=== PATIENT | female | born 1965 | race Caucasian/White ===

== ENCOUNTER 2017-11-17 09:34 | Inpatient (IN) | payer MEDICARE, MEDICAID, SELFPAY ==
[2017-11-17] VITALS (10 sets, daily range): BP systolic 129–146; BP diastolic 00–86; PULSE 87–124; RESP 16–26; TEMP 36.8–38.3; O2SAT 94–98; BMI 23.1; BMI 18.1
--- NOTE | 2017-11-17 09:44 | HMH.EDGENADL ---
ED Disposition Clinical Impression: Seizure disorder Fever Qualifiers: Fever type: unspecified Qualified Code(s): R50.9 - Fever, unspecified Disposition: Still a Patient Condition on Discharge: Good - Critical Care Critical Care Time: No Attestation: On , the high probability of a clinically significant, sudden or life threatening deterioration of the following system(s) required my full and direct attention, intervention and personal management. The time I documented below is in addition to time spent performing reported procedures but includes the following listed in this critical care notation. Medical Decision Making - Gerardo Inquiry Pt receiving controlled substance: No Vital Signs: 11/17/17 09:35 11/17/17 09:54 11/17/17 10:26 Temperature 98.7 F 101.0 F H Temperature Source Axillary Rectal Pulse Rate [Right Radial] 124 H Respiratory Rate 26 H Blood Pressure [Right Arm] 146/00 130/83 Blood Pressure Mean [Right Arm] 48 98 Blood Pressure Source [Right Arm] Manual Cuff/ Palpation Automatic Cuff Blood Pressure Position [Right Arm] Supine Supine 02 Sat by Pulse Oximetry 94 L Oxygen Delivery Method Room Air 11/17/17 10:30 11/17/17 12:35 Temperature Temperature Source Pulse Rate [Right Radial] 89 108 H Respiratory Rate 18 16 Blood Pressure [Right Arm] 138/85 134/71 Blood Pressure Mean [Right Arm] 102 92 Blood Pressure Source [Right Arm] Automatic Cuff Blood Pressure Position [Right Arm] Supine 02 Sat by Pulse Oximetry 97 96 Oxygen Delivery Method - Lab Data Lab Results 11/17/17 09:25: Urine Color Yellow, Urine Appearance Clear, Urine pH 6.0, Ur Specific [place] 1.025, Urine Protein 2+, Urine Glucose (UA) Negative, Urine Ketones Negative, Urine Blood 2+, Urine Nitrate Negative, Urine Bilirubin Negative, Urine Urobilinogen 0.2, Ur Leukocyte Esterase Negative, Urine RBC 5-10, Urine WBC None, Ur Squamous Epith Cells Occasional, Urine Bacteria 1+, Urine Mucus 2+ 11/17/17 10:54: Chlamy pneumoniae PCR Not detected, Adenovirus (PCR) Not detected, B.parapertussis DNA PCR Not detected, Coronavirus OC43 (PCR) Not detected, Coronavirus HKU1 (PCR) Not detected, Coronavirus 229E (PCR) Not detected, Coronavirus NL63 (PCR) Not detected, Human Metapneumovir PCR Not detected, Influenza A (H1) PCR Not detected, Influ A (H1N1/09) PCR Not detected, Influenza A (H3) PCR Not detected, Influenza Type A (PCR) Not detected, Influenza Type B (PCR) Not detected, M. pneumoniae (PCR) Not detected, Parainfluenza 1 (PCR) Not detected, Parainfluenza 2 (PCR) Not detected, Parainfluenza 3 (PCR) Not detected, Parainfluenza 4 (PCR) Not detected, RSV (PCR) Not detected, Entero/Rhino (PCR) Not detected 11/17/17 11:18: WBC 9.3, RBC 5.11, Hgb 15.8, Hct 48.6 H, MCV 95.1, MCH 30.8, MCHC 32.4, RDW 12.0, Plt Count 160, MPV 9.1, Neut % (Auto) 85.6 H, Lymph % (Auto) 9.9 L, [place] % (Auto) 3.6, Eos % (Auto) 0.6, Baso % (Auto) 0.3, Neut # (Auto) 8.0 H, Lymph # (Auto) 0.9, [place] # (Auto) 0.3, Eos # (Auto) 0.1, Baso # (Auto) 0.0, Total Counted 100, Neutrophils % (Manual) 87 H, Lymphocytes % (Manual) 10, Monocytes % (Manual) 3, Platelet Estimate Normal, RBC Morphology Normal 11/17/17 11:18: Sodium 143, Potassium 3.9, Chloride 108 H, Carbon Dioxide 26, Anion Gap 12.9, BUN 17, Creatinine 0.54 L, Estimated Creat Clear 43, Estimated GFR 118, Est GFR ( Amer) 143, Glucose 97, Calcium 8.9, Total Bilirubin 0.1 L, AST 15, ALT 26, Alkaline Phosphatase 101, Total Protein 7.2, Albumin 3.9, Globulin 3.3 H, Albumin/Globulin Ratio 1.2, Phenobarbital 22.3 11/17/17 11:18: Lactic Acid 3.1 H Result diagrams: 11/17/17 11:18 11/17/17 11:18 Orders (Tests/Meds): ED MEDICATIONS Generic Name Dose Route Start Last Admin Trade Name Freq PRN Reason Stop Dose Admin Clindamycin Phosphate 600 mg/ 104 mls @ 104 mls/hr 11/17/17 21:00 Sodium Chloride IV 12/01/17 12:59 Q8H CARLY Protocol Levofloxacin/Dextrose 500 mg in 100 mls @ 100 mls/hr
--- NOTE | 2017-11-17 09:48 | XR_ITS ---
XR chest portable HISTORY: Shortness of breath ITS.REASON: seizures ORDERING PHYSICIAN: Dvaid Pretty MD PATIENT AGE: 52 years COMPARISON: None available FINDINGS: The heart size is unremarkable. There is increased density in the left lung base and retrocardiac region. Previous CT scan demonstrated a hiatal hernia which may count for this density. These findings are similar when compared to an older exam of 08/18/2016. The remaining lungs are clear. Mediastinum is somewhat prominent but unchanged. PEG catheter present. IMPRESSION: Increased density in the retrocardiac region on the left probably related to hiatal hernia. No definite acute finding
--- NOTE | 2017-11-17 09:55 | PC.NURSE ---
spoke with albaro CULLEN who confirms pt is a DNR code status
[2017-11-17 10:28] LABS: Microscopic, Urine URINE MICROSCOPIC (MICROSCOPIC)
[2017-11-17 10:35] LABS: Appearance,Urine CLEAR (Clear); Bilirubin,Urine Negative (Negative); Blood, Urine 2+ (Negative); Color,Urine YELLOW (Yellow); Glucose,Urine (UA) Negative (Negative); Ketones,Urine Negative (Negative); Leukocyte Esterase,Urine Negative (Negative); Nitrate,Urine Negative (Negative); Protein,Urine 2+ (Negative); Specific Gravity, Urine 1.025 (1.005-1.030); Urobilinogen,Urine 0.2 EU/dl (0.2)
[2017-11-17 10:57] LABS: Bacteria,Urine 1+ /lpf; Mucus,Urine 2+ /lpf; Squamous Epithelial Cell,Urine Occasional #/hpf (0-5)
[2017-11-17 11:01] LABS: Adenovirus,PCR Not Detected (NotDetected); Bordetella Pertussis Not Detected (NotDetected); Chlamydophila Pneumoniae, PCR Not Detected (NotDetected); Coronavirus 229E Not Detected (NotDetected); Coronavirus NL63 Not Detected (NotDetected); Coronavirus OC43 Not Detected (NotDetected); Coronovirus HKU1,PCR Not Detected (NotDetected); Human Metapneumovirus Not Detected (NotDetected); Influenza A, PCR Not Detected (NotDetected); Influenza AH1, 2009 Not Detected (NotDetected); Influenza AH1, PCR Not Detected (NotDetected); Influenza AH3,PCR Not Detected (NotDetected); Influenza B, PCR Not Detected (NotDetected); Mycoplasma Pneumoniae, PCR Not Detected (NotDected); Parainfluenza 1, PCR Not Detected (NotDetected); Parainfluenza 2, PCR Not Detected (NotDetected); Parainfluenza 3, PCR Not Detected (NotDetected); Parainfluenza 4, PCR Not Detected (NotDetected); Respiratory Syncytial Virus Not Detected (NotDetected); Rhinovirus/Enterovirus Not Detected (NotDetected)
[2017-11-17 11:30] LABS: Basophils % 0.3 % (0.1-2.0); Eosinophils # 0.1 K/mm3 (0.0-0.4); Eosinophils % 0.6 % (0.1-12.0); Hematocrit 48.6 % (37.0-47.0); Hemoglobin 15.8 g/dL (12.2-16.2); Lymphocytes # 0.9 K/mm3 (0.7-4.5); Lymphocytes % 9.9 K/mm3 (10-50); Mean Corpuscular HGB Conc 32.4 g/dL (31.8-35.4); Mean Corpuscular Hemoglobin 30.8 pg (27.0-31.2); Mean Corpuscular Volume 95.1 fl (81-99); Mean Platelet Volume 9.1 fl (7.4-10.4); Monocytes # 0.3 K/mm3 (0.1-1.0); Monocytes % 3.6 % (1.7-9.3); Neutrophils % 85.6 % (37.0-80.0); Platelet Count 160 K/mm3 (142-424); Red Blood Count 5.11 M/mm3 (4.20-5.40); White Blood Count 9.3 K/mm3 (4.8-10.8)
[2017-11-17 11:42] LABS: Alanine Aminotransferase 26 U/L (12-78); Albumin Level 3.9 gm/dL (3.4-5.0); Albumin/Globulin Ratio 1.2 (1.1-1.8); Alkaline Phosphatase 101 U/L (46-116); Anion Gap 12.9 mEq/L (5-15); Aspartate Amino Transferase 15 U/L (15-37); Bilirubin,Total 0.1 mg/dL (0.2-1.0); Blood Urea Nitrogen 17 mg/dL (7-18); Calcium 8.9 mg/dL (8.5-10.1); Carbon Dioxide 26 mmol/L (21.0-32.0); Chloride 108 mmol/L (98-107); Creatinine Clearance Estimated 43 mL/min (0-300); Creatinine,Serum 0.54 mg/dL (0.55-1.02); Estimated Glomerular Filt Rate 118 ml/min (>60); GFR (African American) 143 ML/MIN (>60); Globulin 3.3 gm/dl (1.3-3.2); Glucose 97 mg/dL (74-106); Potassium 3.9 mmoL/L (3.5-5.1); Sodium 143 mmol/L (136-145); Total Protein,Serum 7.2 gm/dL (6.4-8.2)
[2017-11-17 11:46] LABS: Lactic Acid 3.1 mmol/L (0.4-2.0)
[2017-11-17 11:52] LABS: MANUAL DIFFERENTIAL MANUAL DIFFERENTIAL (MANUAL DIFF)
[2017-11-17 12:23] LABS: Lymphocytes % 10 % (10-50); Monocytes % 3 % (2-9); Neutrophils % 87 % (42-76); Total Cells Counted 100
[2017-11-17 12:44] LABS: Platelet Estimate Normal; RBC Morphology Normal
--- NOTE | 2017-11-17 13:35 | PC.NURSE ---
report called to roberto carlos sharif rn
--- NOTE | 2017-11-17 14:25 | P.CONPHA_ITS ---
[facility] Pharmacy VTE Monitoring - Patient Demographics Admission date: 11/17/17 Report Date: 11/17/17 Time: 14:25 Allergies/Adverse Reactions: Patient Allergies ceftriaxone Allergy (Unknown, Verified 11/17/17 09:50) UNKNOWN REACTION Penicillins Allergy (Unknown, Verified 11/17/17 09:50) I-RASH potassium Allergy (Unknown, Verified 11/17/17 09:50) UNKNOWN REACTION Height: 1.5 m Weight: 40.88 kg Patient Problems: Current Active Problems Seizure disorder (Acute) Fever (Acute) - VTE Risk Labs: VTE Related Lab Results Hgb 15.8 g/dL (12.2-16.2) 11/17/17 11:18 Hct 48.6 % (37.0-47.0) H 11/17/17 11:18 Plt Count 160 K/mm3 (142-424) 11/17/17 11:18 BUN 17 mg/dL (7-18) 11/17/17 11:18 Creatinine 0.54 mg/dL (0.55-1.02) L 11/17/17 11:18 Estimated Creat Clear 43 mL/min (0-300) 11/17/17 11:18 Clinical Trial Participant: No - Prophylaxis VTE Prophylaxis Ordered?: Yes Types of VTE Prophylaxis: TEDS Knee High
[2017-11-17 15:23] LABS: Reflex Lactic Add Lactic Reflex
[2017-11-17 16:04] LABS: Lactic Acid Follow Up (RFLX 1) 1.8 (0.4-2.0)
--- NOTE | 2017-11-17 16:45 | PC.NURSE ---
PATIENT'S G-TUBE WAS CHECKED FOR RESIDUAL AND THERE WAS NONE AT THIS TIME. HER GRAVITY TUB FEEDING WAS GIVEN AT THIS TIME PER HER ROUTINE SCHEDULE AT [facility] 1.5 SARAI; 30 ML & PHENEX 2; 3/4 CUP WITH 315ML OF WATER. THEN HER 100ML WATER BOLUS WAS THEN GIVEN. PATIENT TOLERATED THIS FEEDING WELL.
--- NOTE | 2017-11-17 17:30 | PC.NURSE ---
I CALLED BACK DOWN TO THE ER, MARIANA HAD ALSO CALLED EARLIER AFTER HER TRANSFER TO THE FLOOR, HER HOME MEDS WAS DC'D UPON PROCESSING THE TRANSFER OF ORDERS, NIK SAID THAT MIS WAS LOOKING INTO THE PROBLEM TO WHY THIS KEEPS HAPPENING, I ASKED IF HE COULD JUST ORDER THE MEDS AND NIK ASKED HIM AND HE SAID THAT HE WASNT GOING TO PUT THEM IN AGAIN AND THAT THE PCP COULD ADDRESS HER HOME MEDS.
--- NOTE | 2017-11-17 19:20 | PC.NURSE ---
PT FULL CODE AT THIS TIME UNTIL REACH MOTHER. PT IS DNR AT [facility] SINCE 2010, BUT HAVE BEEN UNABLE TO GET IN TOUCH WITH MOM. NURSE IN DAY SHIFT ATTEMPTED TO CALL # SENT BY [facility], STATES ISN'T A WORKING NUMBER. REPORT RECEIVED FROM TRACEY
--- NOTE | 2017-11-17 19:21 | PC.NURSE ---
report given to yahir
--- NOTE | 2017-11-17 19:36 | DIET.NUTRFU ---
Tube feeding as per care home, as follows. Jevity 1.5 30 ml and Phenex2 3/4 cup mixed with 315 ml H2O at 1000 and 1600 Jevity 1.5 30 ml and Phenex2 1 cup mixed with 315 ml H2O at 2200 Water flushes 100 ml at 800,1200,1600,2000 and 2400 for a total of 500 ml water/24 hours If residuals greater than 100 ml, hold feedings and contact physician. Tube feedings formulas are in patient room.
--- NOTE | 2017-11-17 19:40 | PC.NURSE ---
REPORT GIVEN TO BERTHA PENNINGTON RN
--- NOTE | 2017-11-17 23:58 | PC.NURSE ---
NURSE AWARE OF PTS TEMP
[2017-11-18 03:40] VITALS: BP 154/85; PULSE 107; RESP 22; TEMP 37.5; O2SAT 95
--- NOTE | 2017-11-18 05:59 | PC.NURSE ---
PT HAS BEEN AWAKE ENTIRE SHIFT. PERIODS OF BEING QUIET, BUT YELLING OUT MOSTLY. LOW GRADE TEMP, HIGHEST 99.8. NO SEIZURES NOTED OF THIS TIME. PT NEEDS HER MEDS RE-ORDERED THAT DC'D WHEN TRANFER FROM ER TO ACUTE. IF I SEE DR. HARRIS PRIOR TO END OF MY SHIFT, I WILL UPDATE HIM, OTHERWISE, I WILL PASS THIS ON IN REPORT TO ONCOMING NURSE. PT HAS RT IJ, SALINE LOCKED, RECEIVING ABX. GT SECURE. BOLUS FEEDING X1 GIVEN THIS SHIFT SCHEDULED WELL FREE WATER SCHEDULED. PT HAD NO RESIDUAL PRIOR TO FEEDING AND TUBE PLACEMENT VERIFIED. PT BREATH SOUNDS CLEAR ON ROOM AIR. STABLE. WILL CONTINUE TO MONITOR. REPORT TO BE GIVEN TO ONCOMING NURSE.
--- NOTE | 2017-11-18 07:33 | PC.NURSE ---
REPORT GIVEN TO Garrett BAZZI W/C
[2017-11-18 07:36] VITALS: BP 121/98; PULSE 101; RESP 18; TEMP 36.9; O2SAT 95
--- NOTE | 2017-11-18 08:08 | PC.NURSE ---
spoke with corrine at [facility] to obtain working number for mother. they do not have another number for her but will check with social media manager when they arrive and see if they may have another number.
--- NOTE | 2017-11-18 11:26 | PC.NURSE ---
tried to call mother with number on chart. line just beeps.
--- NOTE | 2017-11-18 12:41 | PC.NURSE ---
CALLED NUMBER FOR MOTHER ON FILE STILL NOT ABLE TO GET AHOLD OF HER. LINE STILL BEEPS
--- NOTE | 2017-11-18 12:42 | PC.NURSE ---
CALLED [facility] AND SPOKE WITH MELISSA IN [employer]. SHE STILL HASNT BEEN ABLE TO OBTAIN WORKING NUMBER FOR MOTHER.
--- NOTE | 2017-11-18 13:31 | HMH.HP ---
*Admission Date: 11/17/17 *Chief complaint: fever *History of present illness: 51 yr old female patient is brought in via ambulance. She is nonverbal. longterm staff reports that she has an increased frequency of seizures this morning lasting 45 sec. She was given Ativan 1 mg intramuscular prior to transport with no response per nurse. She has a history of phenylketonuria with severe disability. She does have a history of a seizure disorder. She is currently on Keppra, phenobarbital, and as needed Ativan for her seizures. admitted for fever and iv antibotics [facility] History I have reviewed the patient's past medical history: Yes - *Social History Alcohol Intake: never - Psychiatric History Expresses thoughts of harming self/others: None Suicide Plan Description: No Plan Review of Systems - Review of Systems Review of systems:: unable to obtain Meds Home Medications Medication Instructions Recorded Confirmed Type aspirin 81 mg chewable tablet 81 mg NG-TUBE DAILY tab 11/05/17 11/17/17 History bisacodyl 10 mg rectal suppository 10 mg AR Q3HP PRN each 11/05/17 11/17/17 History ergocalciferol (vitamin D2) 2,000 1,000 unit NG-TUBE DAILY tab 11/05/17 11/17/17 History unit tablet hydrocodone 5 mg-acetaminophen 325 1 tab NG-TUBE Q12H tab 11/05/17 11/17/17 History mg tablet hydroxyzine HCl 25 mg tablet 25 mg NG-TUBE TIDP PRN tab 11/05/17 11/17/17 History ibuprofen 100 mg/5 mL oral 400 mg NG-TUBE Q6HP PRN ml 11/05/17 11/17/17 History suspension levetiracetam 100 mg/mL oral 500 mg NG-TUBE BID 11/05/17 11/17/17 History solution loperamide 2 mg capsule 2 mg NG-TUBE Q6HP PRN cap 11/05/17 11/17/17 History lorazepam 0.5 mg tablet 0.5 mg NG-TUBE TID tab 11/05/17 11/17/17 History phenobarbital 64.8 mg tablet 64.8 mg NG-TUBE Q12H tab 11/05/17 11/17/17 History sennosides 8.6 mg tablet 17.2 mg NG-TUBE DAILY 11/05/17 11/17/17 History Ergocalciferol (Vitamin D2) 1,000 unit G-TUBE DAILY 11/17/17 11/17/17 History [Vitamin D] hydrOXYzine HCl [Hydroxyzine HCl] 25 mg NG-TUBE BID 11/18/17 11/18/17 History Allergies Allergy/AdvReac Type Severity Reaction Status Date / Time ceftriaxone Allergy Unknown UNKNOWN Verified 11/17/17 09:50 REACTION Penicillins Allergy Unknown I-RASH Verified 11/17/17 09:50 potassium Allergy Unknown UNKNOWN Verified 11/17/17 09:50 REACTION Exam Vital signs and Labs for Last 24 Hours: Temp Pulse Resp BP Pulse Ox 98.4 F 101 H 18 121/98 95 11/18/17 07:36 11/18/17 07:36 11/18/17 07:36 11/18/17 07:36 11/18/17 07:36 Laboratory Results - last 24 hr 11/17/17 15:40: Lactic Acid Fup @ 4Hr 1.8 I & O for Last 24 hours: Intake & Output 11/16/17 11/17/17 11/18/17 11/19/17 11:59 11:59 11:59 11:59 Intake Total 665 / 665 Output Total 840 / 840 Balance -175 / -175 Weight 89 lb 5 oz - Constitutional obtunded - *Routine HEENT Exam Head: Present: normocephalic Eye: Present: PERRL ENT: Present: mucous membranes moist - *Routine Neck Exam Present: supple, full ROM - *Routine Respiratory Exam Present: CTA bilaterally, diminished air movement - *Routine Cardiovascular Exam Present: RRR - *Routine Abdominal Exam Present: soft, normoactive bowel sounds Comments: g tube in place - *Routine Extremities Exam Present: full ROM - *Routine Skin Exam Present: intact - *Routine Neurological Exam Present: alert - Routine Psychiatric Exam Present: unable to assess Assessment and Plan - Assessment and plan all Dx Assessment and Plan for all problems:: place picc line and transfer back to [place] on iv antibiotics
[2017-11-18 14:20] LABS: Alanine Aminotransferase 26 U/L (12-78); Albumin Level 3.9 gm/dL (3.4-5.0); Albumin/Globulin Ratio 1.3 (1.1-1.8); Alkaline Phosphatase 92 U/L (46-116); Anion Gap 16.4 mEq/L (5-15); Bilirubin,Total 0.3 mg/dL (0.2-1.0); Blood Urea Nitrogen 24 mg/dL (7-18); Calcium 8.9 mg/dL (8.5-10.1); Carbon Dioxide 22 mmol/L (21.0-32.0); Chloride 115 mmol/L (98-107); Creatinine Clearance Estimated 116 mL/min (0-300); Creatinine,Serum 0.36 mg/dL (0.55-1.02); Estimated Glomerular Filt Rate 189 ml/min (>60); GFR (African American) 228 ML/MIN (>60); Glucose 106 mg/dL (74-106); Sodium 149 mmol/L (136-145); Total Protein,Serum 6.9 gm/dL (6.4-8.2)
[2017-11-18 14:21] LABS: Basophils % 0.1 % (0.1-2.0); Eosinophils # 0.2 K/mm3 (0.0-0.4); Eosinophils % 1.7 % (0.1-12.0); Hematocrit 44.2 % (37.0-47.0); Hemoglobin 14.1 g/dL (12.2-16.2); Lymphocytes # 1.4 K/mm3 (0.7-4.5); Lymphocytes % 13.4 K/mm3 (10-50); Mean Corpuscular HGB Conc 31.9 g/dL (31.8-35.4); Mean Corpuscular Hemoglobin 30.4 pg (27.0-31.2); Mean Corpuscular Volume 95.1 fl (81-99); Mean Platelet Volume 10.7 fl (7.4-10.4); Monocytes # 0.7 K/mm3 (0.1-1.0); Monocytes % 6.3 % (1.7-9.3); Neutrophils # 8.3 K/mm3 (1.8-7.8); Neutrophils % 78.5 % (37.0-80.0); Platelet Count 82 K/mm3 (142-424); Potassium 4.4 mmoL/L (3.5-5.1); Red Blood Count 4.65 M/mm3 (4.20-5.40); Red Cell Distribution Width 12.6 % (11.5-17.5); White Blood Count 10.6 K/mm3 (4.8-10.8)
[2017-11-18 14:22] LABS: Aspartate Amino Transferase 22 U/L (15-37)
--- NOTE | 2017-11-18 14:30 | SW/DCPLANNER ---
I have made several attempts to contact patients family. Both phone numbers listed on patients chart are not working phone numbers. I have been in contact with Mary at [place]....Mary has gave me several phone numbers to contact family and has also attempted to contact family as well. Mary is in the process of contacting home that her father was recently at....I will follow up with Mary this afternoon.
[2017-11-18 16:00] VITALS: BP 146/79; PULSE 107; RESP 22; TEMP 37.2; O2SAT 94
--- NOTE | 2017-11-18 16:02 | SW/DCPLANNER ---
Addendum entered by Cara Garcia 11/18/17 18:01: Phone number for January (mother) is [phone] Original Note: Mary from [facility] has called me back with a phone number for patients brother (Guille Peters) whom is with patients mother (January)....phone number is [phone]. I will make nurse (Dora) aware of phone number to call and receive consent from patients mother for PICC line.
--- NOTE | 2017-11-18 16:14 | PC.NURSE ---
Was able to speak with pt brother lynda and mother january on telephone. number to reach them at was [phone] Mother (cr) and brother were unaware of pt being admitted to hospital and numerous attempts of staff to contact them. Telephone consent for PICC line insertion was obtained by Gayla Phan RN and Monik Goodman RN at 1615. pt family states that they will arrive to see the patient this evening and will address her code status at that time. Mother was unable to continue conversation with this nurse related to being emotionally upset about her child being ill. Brother was informed at this time that the pt, his sister would be a full code until code status is able to be clarified with family .
--- NOTE | 2017-11-18 16:43 | PC.NURSE ---
OBTAINED A NUMBER FOR THE BROTHER TO SPEAK WITH PT MOTHER. INFORMED [facility] OF THIS. PT MOTHER IS COMING IN TO FACILITY.
[2017-11-18 19:41] VITALS: BP 138/93; PULSE 115; RESP 24; TEMP 38.1; O2SAT 95
--- NOTE | 2017-11-18 19:49 | PC.NURSE ---
pt has had no changes from pervious assessment. pt yells out but this is baseline. iv patent. tube feeding administered as ordered. residuals checked before every feeding and were less than 10ml. call light in reach. safety on. seizure pads in place. report given to osmin garvey.
[2017-11-18 20:00] VITALS: O2SAT 95
[2017-11-19 04:00] VITALS: BP 152/71; PULSE 105; RESP 24; TEMP 37.2; O2SAT 96
--- NOTE | 2017-11-19 05:36 | PC.NURSE ---
PATIENT HAS NOT RESTED VERY WELL THIS SHIFT. PATIENT WAS VERY RESTLESS AND YELLING CONSISTANTLY AT BEGINNING OF SHIFT. PRN ORDER OBTAINED FOR HALDOL 2 MG IM. PATIENT RECEIVED 1 DOSE OF HALDOL THIS SHIFT IT WAS VERY EFFECTIVE. PATIENT'S MOTHER AT BEDSIDE. PATIENT TOLERATED FEEDING WELL. SHE IS CURRENTLY RESTING QUIETLY IN BED. NO OTHER PROBLEMS NOTED AT THIS TIME. VSS. WILL CONTINUE TO MONITOR
[2017-11-19 06:44] LABS: Basophils % 0.3 % (0.1-2.0); Eosinophils # 0.1 K/mm3 (0.0-0.4); Eosinophils % 1.7 % (0.1-12.0); Hematocrit 41.9 % (37.0-47.0); Hemoglobin 13.7 g/dL (12.2-16.2); Lymphocytes % 23.3 K/mm3 (10-50); Mean Corpuscular HGB Conc 32.6 g/dL (31.8-35.4); Mean Corpuscular Hemoglobin 31.6 pg (27.0-31.2); Mean Corpuscular Volume 97.1 fl (81-99); Mean Platelet Volume 9.8 fl (7.4-10.4); Monocytes # 0.7 K/mm3 (0.1-1.0); Monocytes % 8.3 % (1.7-9.3); Neutrophils # 5.7 K/mm3 (1.8-7.8); Neutrophils % 66.5 % (37.0-80.0); Platelet Count 112 K/mm3 (142-424); Red Blood Count 4.32 M/mm3 (4.20-5.40); Red Cell Distribution Width 12.5 % (11.5-17.5); White Blood Count 8.6 K/mm3 (4.8-10.8)
[2017-11-19 06:54] LABS: Alanine Aminotransferase 25 U/L (12-78); Albumin Level 3.8 gm/dL (3.4-5.0); Albumin/Globulin Ratio 1.2 (1.1-1.8); Alkaline Phosphatase 87 U/L (46-116); Anion Gap 8.8 mEq/L (5-15); Aspartate Amino Transferase 19 U/L (15-37); Bilirubin,Total 0.4 mg/dL (0.2-1.0); Blood Urea Nitrogen 20 mg/dL (7-18); Calcium 8.6 mg/dL (8.5-10.1); Carbon Dioxide 22 mmol/L (21.0-32.0); Chloride 111 mmol/L (98-107); Creatinine Clearance Estimated 82 mL/min (0-300); Creatinine,Serum 0.52 mg/dL (0.55-1.02); Estimated Glomerular Filt Rate 123 ml/min (>60); GFR (African American) 149 ML/MIN (>60); Globulin 3.3 gm/dl (1.3-3.2); Glucose 96 mg/dL (74-106); Potassium 3.8 mmoL/L (3.5-5.1); Sodium 138 mmol/L (136-145); Total Protein,Serum 7.1 gm/dL (6.4-8.2)
--- NOTE | 2017-11-19 07:34 | PC.NURSE ---
REPORT GIVEN TO Negro ARAGON W/C
[2017-11-19 08:00] VITALS: BP 139/65; PULSE 108; RESP 22; TEMP 37; O2SAT 95
[2017-11-19 10:07] LABS: Adenovirus,PCR Not Detected (NotDetected); Bordetella Pertussis Not Detected (NotDetected); Chlamydophila Pneumoniae, PCR Not Detected (NotDetected); Coronavirus 229E Not Detected (NotDetected); Coronavirus NL63 Not Detected (NotDetected); Coronavirus OC43 Not Detected (NotDetected); Coronovirus HKU1,PCR Not Detected (NotDetected); Human Metapneumovirus Not Detected (NotDetected); Influenza A, PCR Not Detected (NotDetected); Influenza AH1, 2009 Not Detected (NotDetected); Influenza AH1, PCR Not Detected (NotDetected); Influenza AH3,PCR Not Detected (NotDetected); Influenza B, PCR Not Detected (NotDetected); Mycoplasma Pneumoniae, PCR Not Detected (NotDected); Parainfluenza 1, PCR Not Detected (NotDetected); Parainfluenza 2, PCR Not Detected (NotDetected); Parainfluenza 3, PCR Not Detected (NotDetected); Parainfluenza 4, PCR Not Detected (NotDetected); Respiratory Syncytial Virus Not Detected (NotDetected); Rhinovirus/Enterovirus Not Detected (NotDetected)
[2017-11-19 10:30] VITALS: BMI 26.9
--- NOTE | 2017-11-19 10:45 | PC.NURSE ---
Clarified with care management, Rommel QUICK is going to discharge patient back [facility] without PICC line. Insertion is not needed/cancelled.
[2017-11-19 10:55] LABS: Levetiracetam (Keppra) 4.6 ug/mL (10.0-40.0)
--- NOTE | 2017-11-19 12:06 | SW/DCPLANNER ---
Patient will discharge back to [facility] this afternoon under [facility] level of care.
--- NOTE | 2017-11-19 12:33 | HMH.DCSUM ---
General - General Admission date: 11/17/17 Discharge date: 11/19/17 HPI HPI: 51 yr old female patient is brought in via ambulance. She is nonverbal. half-way staff reports that she has an increased frequency of seizures this morning lasting 45 sec. She was given Ativan 1 mg intramuscular prior to transport with no response per nurse. She has a history of phenylketonuria with severe disability. She does have a history of a seizure disorder. She is currently on Keppra, phenobarbital, and as needed Ativan for her seizures. admitted for fever and iv antibotics Hospital Course Hospital Course: iv antibotics, chest x ray, blood cx, monitoring of seizures. while in [facility] no seizure activity noted. mom at bedside will dc back to [place]. pt will needs cbc and cmp on wednesday Objective Vital signs: Temp Pulse Resp BP Pulse Ox 98.6 F 108 H 22 139/65 95 11/19/17 08:00 11/19/17 08:00 11/19/17 08:00 11/19/17 08:00 11/19/17 08:00 obtunded Comments: nonverbal, only open eyes - *Routine HEENT Exam Head: Present: normocephalic Eye: Present: PERRL ENT: Present: mucous membranes moist - *Routine Neck Exam Present: supple, full ROM - *Routine Respiratory Exam Present: CTA bilaterally - *Routine Cardiovascular Exam Present: RRR - *Routine Abdominal Exam Present: soft, normoactive bowel sounds Comments: g tube in place - *Routine Neurological Exam Present: alert, sensory deficit, motor deficit - Routine Psychiatric Exam Present: unable to assess Results Labs on day of discharge: Labs from last 24 hours 11/19/17 11/19/17 11/19/17 10:00 06:25 06:25 WBC 8.6 RBC 4.32 Hgb 13.7 Hct 41.9 MCV 97.1 MCH 31.6 H MCHC 32.6 RDW 12.5 Plt Count 112 L D MPV 9.8 Neut % (Auto) 66.5 Lymph % (Auto) 23.3 [place] % (Auto) 8.3 Eos % (Auto) 1.7 Baso % (Auto) 0.3 Neut # (Auto) 5.7 Lymph # (Auto) 2.0 [place] # (Auto) 0.7 Eos # (Auto) 0.1 Baso # (Auto) 0.0 Sodium 138 Potassium 3.8 Chloride 111 H Carbon Dioxide 22 Anion Gap 8.8 BUN 20 H Creatinine 0.52 L D Estimated Creat Clear 82 Estimated GFR 123 Est GFR ( Amer) 149 D Glucose 96 Calcium 8.6 Total Bilirubin 0.4 AST 19 ALT 25 Alkaline Phosphatase 87 Total Protein 7.1 Albumin 3.8 Globulin 3.3 H Albumin/Globulin Ratio 1.2 Chlamy pneumoniae PCR Not detected Adenovirus (PCR) Not detected B.parapertussis DNA PCR Not detected Coronavirus OC43 (PCR) Not detected Coronavirus HKU1 (PCR) Not detected Coronavirus 229E (PCR) Not detected Coronavirus NL63 (PCR) Not detected Human Metapneumovir PCR Not detected Influenza A (H1) PCR Not detected Influ A (H1N1/09) PCR Not detected Influenza A (H3) PCR Not detected Influenza Type A (PCR) Not detected Influenza Type B (PCR) Not detected M. pneumoniae (PCR) Not detected Parainfluenza 1 (PCR) Not detected Parainfluenza 2 (PCR) Not detected Parainfluenza 3 (PCR) Not detected Parainfluenza 4 (PCR) Not detected RSV (PCR) Not detected Entero/Rhino (PCR) Not detected 11/18/17 11/18/17 13:38 13:38 WBC 10.6 RBC 4.65 Hgb 14.1 Hct 44.2 MCV 95.1 MCH 30.4 MCHC 31.9 RDW 12.6 Plt Count 82 L D MPV 10.7 H Neut % (Auto) 78.5 Lymph % (Auto) 13.4 [place] % (Auto) 6.3 Eos % (Auto) 1.7 Baso % (Auto) 0.1 Neut # (Auto) 8.3 H Lymph # (Auto) 1.4 [place] # (Auto) 0.7 Eos # (Auto) 0.2 Baso # (Auto) 0.0 Sodium 149 H Potassium 4.4 Chloride 115 H Carbon Dioxide 22 Anion Gap 16.4 H BUN 24 H D Creatinine 0.36 L D Estimated Creat Clear 116 Estimated GFR 189 Est GFR ( Amer) 228 D Glucose 106 Calcium 8.9 Total Bilirubin 0.3 AST 22 D ALT 26 Alkaline Phosphatase 92 Total Protein 6.9 Albumin 3.9 Globulin 3.0 Albumin/Globulin Ratio 1.3 Chlamy
--- NOTE | 2017-11-19 12:38 | P.DS_ITS ---
General - General Admission date: 11/17/17 Discharge date: 11/19/17 HPI HPI: 51 yr old female patient is brought in via ambulance. She is nonverbal. senior care staff reports that she has an increased frequency of seizures this morning lasting 45 sec. She was given Ativan 1 mg intramuscular prior to transport with no response per nurse. She has a history of phenylketonuria with severe disability. She does have a history of a seizure disorder. She is currently on Keppra, phenobarbital, and as needed Ativan for her seizures. admitted for fever and iv antibotics Hospital Course Hospital Course: iv antibotics, chest x ray, blood cx, monitoring of seizures. while in [facility] no seizure activity noted. mom at bedside will dc back to [place]. pt will needs cbc and cmp on wednesday Objective Vital signs: Temp Pulse Resp BP Pulse Ox 98.6 F 108 H 22 139/65 95 11/19/17 08:00 11/19/17 08:00 11/19/17 08:00 11/19/17 08:00 11/19/17 08:00 obtunded Comments: nonverbal, only open eyes - *Routine HEENT Exam Head: Present: normocephalic Eye: Present: PERRL ENT: Present: mucous membranes moist - *Routine Neck Exam Present: supple, full ROM - *Routine Respiratory Exam Present: CTA bilaterally - *Routine Cardiovascular Exam Present: RRR - *Routine Abdominal Exam Present: soft, normoactive bowel sounds Comments: g tube in place - *Routine Neurological Exam Present: alert, sensory deficit, motor deficit - Routine Psychiatric Exam Present: unable to assess Results Labs on day of discharge: Labs from last 24 hours 11/19/17 11/19/17 11/19/17 10:00 06:25 06:25 WBC 8.6 RBC 4.32 Hgb 13.7 Hct 41.9 MCV 97.1 MCH 31.6 H MCHC 32.6 RDW 12.5 Plt Count 112 L D MPV 9.8 Neut % (Auto) 66.5 Lymph % (Auto) 23.3 [place] % (Auto) 8.3 Eos % (Auto) 1.7 Baso % (Auto) 0.3 Neut # (Auto) 5.7 Lymph # (Auto) 2.0 [place] # (Auto) 0.7 Eos # (Auto) 0.1 Baso # (Auto) 0.0 Sodium 138 Potassium 3.8 Chloride 111 H Carbon Dioxide 22 Anion Gap 8.8 BUN 20 H Creatinine 0.52 L D Estimated Creat Clear 82 Estimated GFR 123 Est GFR ( Amer) 149 D Glucose 96 Calcium 8.6 Total Bilirubin 0.4 AST 19 ALT 25 Alkaline Phosphatase 87 Total Protein 7.1 Albumin 3.8 Globulin 3.3 H Albumin/Globulin Ratio 1.2 Chlamy pneumoniae PCR Not detected Adenovirus (PCR) Not detected B.parapertussis DNA PCR Not detected Coronavirus OC43 (PCR) Not detected Coronavirus HKU1 (PCR) Not detected Coronavirus 229E (PCR) Not detected Coronavirus NL63 (PCR) Not detected Human Metapneumovir PCR Not detected Influenza A (H1) PCR Not detected Influ A (H1N1/09) PCR Not detected Influenza A (H3) PCR Not detected Influenza Type A (PCR) Not detected Influenza Type B (PCR) Not detected M. pneumoniae (PCR) Not detected Parainfluenza 1 (PCR) Not detected Parainfluenza
--- NOTE | 2017-11-19 15:43 | DIET.NUTRFU ---
Pt is receiving TF order per detention. TF supplies have been brought from [place] for pt and are being kept in pt room. Pt is tolerating TF well with little residuals per RN. Will continue to monitor.
== END 2017-11-19 14:45 | DRG 101 ==
LOC: ER 12:34 → 2ND 13:03
PROVIDERS: Nurse Practitioner Family; Admitting Provider Emergency Medicine; Emergency Provider Emergency Medicine; Family Provider Emergency Medicine; PCP Emergency Medicine; Visit Provider Emergency Medicine
DX: G40.909 Epilepsy, unspecified, not intractable, without status epilepticus (principal); E70.1 Other hyperphenylalaninemias; R50.9 Fever, unspecified
CPT/HCPCS: 36415; 71045; 80053; 80177; 80184; 81001; 83605; 85007; 85025; 87040; 87486; 87581; 87633; 87798; 96365; 99284; 99285; J1956